=== PATIENT | male | born 1980 | race African-American/Black ===

== ENCOUNTER 2017-08-14 10:37 | Emergency (ER) | payer SELFPAY ==
[~2017-08-14] VITALS: Ht 177.8 cm; Wt 63.5 kg
[~2017-08-14 10:37] MED LIST: DICL50TA2 PO; METH750T2 PO; PERM5CRE TOP; TRIA0.02 TOP
[2017-08-14 10:38] VITALS: BP 132/90; PULSE 69; RESP 18; TEMP 98.6; O2SAT 100
[2017-08-14] MEDS ORDERED: SODIUM CHLORIDE 0.9% FLUSH 10 ML FLUSH IVF PRN (11:00)
[2017-08-14 11:08] VITALS: BP_SYST 131; BP_SYST 133; BP_DIAS 70; BP_DIAS 79; PULSE 59; RESP 17; O2SAT 100
--- NOTE | 2017-08-14 11:25 | RADRPT ---
EXAM DATE/TIME: 08/14/2017 11:04 [place] COMPARISON: No previous studies available for comparison. INDICATIONS : Chest pain. Patient complains of mid chest pain, he coughs, and then has vomiting. MEDICAL HISTORY : None. SURGICAL HISTORY : None. ENCOUNTER: Initial ACUITY: 2 days PAIN SCORE: 8/10 LOCATION: Bilateral chest FINDINGS: A single portable frontal view of the chest is blurred by breathing motion artifact. Heart is normal in size. Lungs are clear. No effusions. Orthopedic plate is seen involving the right clavicle. CONCLUSION: No acute disease. Gurpreet Burt Jr., MD on August 14, 2017 at 11:23 Board Certified Radiologist. This report was verified electronically.
[2017-08-14 11:46] LABS: AUTOMATED NEUTROPHIL # 3.9 TH/MM3 (1.8-7.7); BASOPHIL % 0.7 % (0.0-2.0); EOSINOPHIL # 0.1 TH/MM3 (0-0.4); EOSINOPHIL % 1.1 % (0.0-4.0); HEMATOCRIT 37.4 % (39.0-51.0); HEMO FLAGS DIFF FINAL; LYMPH % 30.5 % (9.0-44.0); MEAN CELL VOLUME 84.4 FL (80.0-100.0); MEAN CORPUSCULAR HEMOGLOBIN 27.9 PG (27.0-34.0); MONO % 8.7 % (0.0-8.0); PLATELET COUNT 265 TH/MM3 (150-450); RED BLOOD COUNT 4.42 MIL/MM3 (4.50-5.90); RED CELL DISTRIBUTION WIDTH 15.2 % (11.6-17.2); WHITE BLOOD COUNT 6.6 TH/MM3 (4.0-11.0)
[2017-08-14 12:07] LABS: APTT (PATIENT) 25.9 SEC (24.3-30.1); INTERNATIONAL NORMALIZED RATIO 0.9 RATIO
[2017-08-14 12:08] LABS: ANION GAP 4 MEQ/L (5-15); BICARBONATE 26.2 MEQ/L (21.0-32.0); BLOOD UREA NITROGEN 10 MG/DL (7-18); CHLORIDE 110 MEQ/L (98-107); GLOMERULAR FILTRATION RATE 134 ML/MIN (>89); POTASSIUM 3.9 MEQ/L (3.5-5.1); SODIUM (NA) 140 MEQ/L (136-145)
[2017-08-14 12:24] LABS: CREATINE KINASE 277 U/L (39-308)
--- NOTE | 2017-08-14 12:30 | PD ---
HPI Chief Complaint: Chest Pain Time Seen by Provider: 10:54 Travel History International Travel<30 days: No Contact w/Intl Traveler<30days: No Traveled to known affect area: No History of Present Illness HPI 37-year-old male came to the emergency room with history of cough, chills, vomiting and some left-sided chest pain that's been going on since yesterday. Patient says that he has been in contact with a girl and her son to have been sick for past couple weeks. His last emesis was last night. He describes his pain on the left side of his chest going to his abdomen. Patient says that he has been coughing without any mucus production. Vital signs were stable. He is otherwise a healthy person. He says that he smokes half a pack cigarette every day. No aggravating or relieving factors to the pain identified. PFSH Past Medical History Narrative Medical List of his past medical, surgical, social and family history is reviewed from the nursing note. Hx Anticoagulant Therapy: No Bipolar Disorder: Yes Cardiovascular Problems: No Chemotherapy: No Cerebrovascular Accident: No Diabetes: No Diminished Hearing: No Hypertension: Yes Implanted Vascular Access Dvce: No Psychiatric: Yes (PER EVAC - PT OFF [id number]) Respiratory: No Schizophrenia: Yes (OFF MEDS x 7 months ) Past Surgical History Hysterectomy: No Other Surgery: No Social History Alcohol Use: Yes Tobacco Use: Yes (1ppd) Substance Use: Yes (marijuana) Allergies-Medications (Allergen,Severity, Reaction): Coded Allergies: No Known Allergies (Verified , 05/31/15) Comments No known drug allergies. Reported Meds & Prescriptions Reported Meds & Active Scripts Active No Active Prescriptions or Reported Medications Narrative Medication List of his home medications reviewed from the nursing note. Review of Systems Except as stated in HPI: all other systems reviewed are Neg General / Constitutional: Positive: Fever, Chills Cardiovascular: Positive: Chest Pain or Discomfort Respiratory: Positive: Cough Gastrointestinal: Positive: Vomiting Physical Exam Narrative GENERAL: Awake, alert, no obvious distress SKIN: Focused skin assessment warm/dry. HEAD: Atraumatic. Normocephalic. EYES: Pupils equal and round. No scleral icterus. No injection or drainage. ENT: No nasal bleeding or discharge. Mucous membranes pink and moist. NECK: Trachea midline. No JVD. CARDIOVASCULAR: Regular rate and rhythm. No murmur appreciated. RESPIRATORY: No accessory muscle use. Clear to auscultation. Breath sounds equal bilaterally. GASTROINTESTINAL: Abdomen soft, non-tender, nondistended. Hepatic and splenic margins not palpable. MUSCULOSKELETAL: No obvious deformities. No clubbing. No cyanosis. No edema. NEUROLOGICAL: Awake and alert. No obvious cranial nerve deficits. Motor grossly within normal limits. Normal speech. PSYCHIATRIC: Appropriate mood and affect; insight and judgment normal. Data Data Last Documented VS Orders Orders Electrocardiogram (08/14/17 10:56) Basic Metabolic Panel (Bmp) (08/14/17 10:56) Ckmb (Isoenzyme) Profile (08/14/17 10:56) Complete Blood Count With Diff (08/14/17 10:56) Magnesium (Mg) (08/14/17 10:56) Prothrombin Time / Inr (Pt) (08/14/17 10:56) Act Partial Throm Time (Ptt) (08/14/17 10:56) Troponin I (08/14/17 10:56) Chest, Single Ap (08/14/17 10:56) Ecg Monitoring (08/14/17 10:56) Bilateral Bp Monitoring (08/14/17 10:56) Iv Access Insert/Monitor (08/14/17 10:56) Oximetry (08/14/17 10:56) Oxygen Administration (08/14/17 10:56) Sodium Chloride 0.9% Flush (Ns Flush) (08/14/17 11:00) CKMB (08/14/17 11:15) CKMB% (08/14/17 11:15) Ed Discharge Order (08/14/17 13:19) Labs Laboratory Tests Test 08/14/17 11:15 White Blood Count 6.6 TH/MM3 Red Blood Count 4.42 MIL/MM3 Hemoglobin 12.3 GM/DL Hematocrit 37.4 % Mean Corpuscular Volume 84.4 FL Mean Corpuscular Hemoglobin 27.9 PG Mean Corpuscular Hemoglobin Concent 33.0 % Red Cell Distribution Width 15.2 % Platelet Count 265 TH/MM3 Mean Platelet Volume 8.1 FL Neutrophils (%) (Auto) 59.0 % Lymphocytes (%) (Auto) 30.5 % Monocytes (%) (Auto) 8.7 % Eosinophils (%) (Auto) 1.1 % Basophils (%) (Auto) 0.7 % Neutrophils # (Auto) 3.9 TH/MM3 Lymphocytes # (Auto) 2.0 TH/MM3 Monocytes # (Auto) 0.6 TH/MM3 Eosinophils # (Auto) 0.1 TH/MM3 Basophils # (Auto) 0.0 TH/MM3 CBC Comment DIFF FINAL Differential Comment Prothrombin Time 10.0 SEC Prothromb Time International Ratio 0.9 RATIO Activated Partial Thromboplast Time 25.9 SEC Blood Urea Nitrogen 10 MG/DL Creatinine 0.79 MG/DL Random Glucose 79 MG/DL Calcium Level 8.6 MG/DL Magnesium Level 2.0 MG/DL Sodium Level 140 MEQ/L Potassium Level 3.9 MEQ/L Chloride Level 110 MEQ/L Carbon Dioxide Level 26.2 MEQ/L Anion Gap 4 MEQ/L Estimat Glomerular Filtration Rate 134 ML/MIN Total Creatine Kinase 277 U/L Creatine Kinase MB 1.5 NG/ML Troponin I LESS THAN 0.02 NG/ML MDM Medical Decision Making Medical Screen Exam Complete: Yes Emergency Medical Condition: Yes Medical Record Reviewed: Yes Interpretation(s) Twelve-lead EKG was reviewed by me. Normal sinus rhythm, normal axis, bradycardia, nonspecific ST-T wave changes. Heart rate of 44 bpm. Differential Diagnosis Viral illness, ACS, atypical chest pain Narrative Course 1:15 PM blood test results are within normal limit. Given the history of exposure and rest of the symptoms I think he has viral syndrome. I'm comfortable discharging him home at this point. All this was explained to the patient along with 5 minutes of time spent on the need for smoking cessation. Procedures EKG Prior to Arrival: No Diagnosis Primary Impression: Viral illness Additional Impressions: Atypical chest pain Needs smoking cessation education Referrals: Primary Care Physician Additional Instructions: He should quit smoking in order for your cough to get better. Return to the ER the condition worsens or any other new concerns. Otherwise follow-up with your primary care. Drink lots of fluid. He can take Tylenol/ibuprofen/Motrin/Advil for your fever or pain. Med/Other Pt SpecificInfo: No Change to Meds Scripts No Active Prescriptions or Reported Meds Disposition: 01 DISCHARGE HOME Condition: Stable Gerardo Austin MD Aug 14, 2017 12:30
[2017-08-14 12:37] LABS: CKMB 1.5 NG/ML (0.5-3.6)
--- NOTE | 2017-08-15 16:21 | EKG ---
Date Performed: 08/14/2017 Time Performed: 11:07:00 PTAGE: 37 years EKG: SINUS BRADYCARDIA BORDERLINE ECG Since PREVIOUS TRACING , no significant change noted PREVIOUS TRACIN12/22/2011 05.45 DOCTOR: Jose Palmer Interpretating Date/Time 08/15/2017 16:19:19
== END 2017-08-14 13:43 | disposition home or self-care (01) ==
LOC: NEPE 10:37
DX: B34.9 Viral infection, unspecified (principal); R07.89 Other chest pain; R00.1 Bradycardia, unspecified; F31.9 Bipolar disorder, unspecified; I10 Essential (primary) hypertension; F20.9 Schizophrenia, unspecified; F17.210 Nicotine dependence, cigarettes, uncomplicated
CPT/HCPCS: 71010; 80048; 82550; 82552; 83735; 84484; 85025; 85610; 85730; 93005

== ENCOUNTER 2017-10-20 11:39 | Emergency (ER) | payer SELFPAY ==
[2017-10-20 11:40] VITALS: BP 116/77; PULSE 75; RESP 16; TEMP 97.8; O2SAT 97
[2017-10-20] MEDS ORDERED: IPRA0.06 EACH NARE (12:07)
[2017-10-20] MEDS ORDERED: ALBUAER3 INH (12:07)
[2017-10-20] MEDS ORDERED: AZIT250T3 PO (12:07)
--- NOTE | 2017-10-20 12:07 | PD ---
HPI Chief Complaint: Medical Clearance Time Seen by Provider: 11:56 Travel History International Travel<30 days: No Contact w/Intl Traveler<30days: No Traveled to known affect area: No History of Present Illness HPI This is a 37-year-old male who presents to the emergency department with sinus congestion that has been going on for 3 days associated with a productive cough with some green sputum, constant, moderate severity associated with some dizziness and body aches. He denies any fevers or chills. He also thinks his blood sugar is abnormal. He says he has been drinking a lot and going to the bathroom a lot. PFSH Past Medical History Hx Anticoagulant Therapy: No Bipolar Disorder: Yes Cardiovascular Problems: No Chemotherapy: No Cerebrovascular Accident: No Diabetes: No Diminished Hearing: No Hypertension: Yes Implanted Vascular Access Dvce: No Psychiatric: Yes (PER EVAC - PT OFF [id number]) Respiratory: No Schizophrenia: Yes (OFF MEDS x 7 months ) Past Surgical History Hysterectomy: No Other Surgery: No Social History Alcohol Use: Yes Tobacco Use: Yes (1ppd) Substance Use: Yes (marijuana) Allergies-Medications (Allergen,Severity, Reaction): Coded Allergies: No Known Allergies (Verified , 05/31/15) Reported Meds & Prescriptions Reported Meds & Active Scripts Active No Active Prescriptions or Reported Medications Review of Systems Except as stated in HPI: all other systems reviewed are Neg Physical Exam Narrative GENERAL:Well appearing, no acute distress SKIN: Focused skin assessment warm and dry. HEAD: Atraumatic. Normocephalic. EYES: Pupils equal and round. No injection or drainage. ENT: Moist mucous membranes. Nares are erythematous with clear discharge from the nose NECK: Trachea midline. CARDIOVASCULAR: Regular rate and rhythm. No murmur appreciated. RESPIRATORY: Expiratory wheezing with no increased work of breathing GASTROINTESTINAL: Abdomen soft, non-tender, nondistended. MUSCULOSKELETAL: No obvious deformities. NEUROLOGICAL: Awake and alert. No obvious cranial nerve deficits. Moving all Extremities. PSYCHIATRIC: Appropriate mood and affect; insight and judgment normal. Data Data Last Documented VS Vital Signs Date Time Temp Pulse Resp B/P (MAP) Pulse Ox O2 Delivery O2 Flow Rate FiO2 18 11:40 97.8 75 16 116/77 (45) 97 MDM Medical Decision Making Medical Screen Exam Complete: Yes Emergency Medical Condition: Yes Differential Diagnosis Sinusitis, bronchitis, pneumonia, diabetes Narrative Course This is a 37-year-old male who presents to the emergency department with sinus congestion, productive cough and malaise. He does smoke cigarettes. I suspect the patient has acute bronchitis. He appears very well and has normal vital signs. Is reassuring. I think patient can be discharged home with bronchodilator, antibiotic given his smoking history, and follow-up with primary care. Diagnosis Primary Impression: Bronchitis Additional Impression: Sinusitis Qualified Codes: J01.00 - Acute maxillary sinusitis, unspecified Patient Instructions: General Instructions Additional Instructions: If you develop severe shortness of breath, chest pain, or difficulty breathing return to the emergency department. Use albuterol every 4 hours for the next 2 days. Then use as needed for wheezing. Complete your course of antibiotics. Follow up with your primary care physician in 2-3 days if your symptoms have not improved. Med/Other Pt SpecificInfo: Prescription(s) given Scripts Ipratropium Nasal (Ipratropium Nasal) 0.06% [place] 1 SPRAY EACH NARE TID, #1 BOTTLE 0 Refills Prov: Yulia Almaraz MD 10/20/17 Azithromycin (Azithromycin) 250 Mg Tab 250 MG PO DIRECTED for Infection, #6 TAB 0 Refills Take 2 tabs (500 mg) on day 1 then 1 tab daily x 4 days. Prov: Yulia Almaraz MD 10/20/17 Albuterol 8.5 GM Inh (Proair Hfa 8.5 GM Inh) 90 Mcg/Act Aer 2 PUFF INH Q4-6H Y for SHORTNESS OF BREATH, #1 INHALER 0 Refills 108 mcg/actuation Prov: Yulia Almaraz MD 10/20/17 Disposition: 01 DISCHARGE HOME Condition: Stable Yulia Almaraz MD Oct 20, 2017 12:07
== END 2017-10-20 12:25 | disposition home or self-care (01) ==
LOC: NEPD 11:39
DX: J40 Bronchitis, not specified as acute or chronic (principal); F31.9 Bipolar disorder, unspecified; I10 Essential (primary) hypertension; F20.9 Schizophrenia, unspecified; F17.200 Nicotine dependence, unspecified, uncomplicated
CPT/HCPCS: 99283